=== PATIENT | female | born 1970 | race Caucasian/White ===

== ENCOUNTER 2024-03-10 11:58 | Inpatient (IN) | payer OTHER, BC ==
[~2024-03-10] VITALS: Ht 157.5 cm; Wt 63.2 kg
[2024-03-10 12:01] VITALS: O2SAT 100
[2024-03-10] MEDS: LABETALOL 5MG/ML 4ML INJ IV ONE (12:30)
[2024-03-10 13:27] LABS: BASOPHILS % 0.6 % (0.0-2.0); CHLORIDE 108 mEq/L (98-107); EOSINOPHILS % 0.6 % (0.0-5.0); HEMATOCRIT. 39.4 % (36.0-48.0); HEMOGLOBIN. 13.4 g/dL (12.0-16.0); MEAN CORPUSCULAR HEMOGLOBIN 29.4 pg (28.0-32.0); MEAN CORPUSCULAR HGB CONC 33.9 g/dL (31.0-37.0); MEAN CORPUSCULAR VOLUME 86.7 fL (81.0-99.0); MEAN PLATELET VOLUME 11.2 fl (7.4-10.4); MONOCYTES % 4.1 % (2.0-8.0); NEUTROPHILS % 78.7 % (40.0-76.0); PLATELET 179 x1000/uL (130-400); POTASSIUM 3.4 mEq/L (3.5-5.1); RED BLOOD CELL COUNT 4.55 mill/uL (4.2-5.4); SODIUM 142 mEq/L (136-145)
[2024-03-10 13:28] LABS: CALCIUM 9.8 mg/dL (8.7-10.4); CARBON DIOXIDE 28 mEq/L (21-32)
[2024-03-10 13:33] LABS: CREATININE 0.6 mg/dL (0.6-1.0); GLUCOSE 139 mg/dL (70-105); UREA NITROGEN BLOOD 17 mg/dL (9-23)
[2024-03-10 13:34] LABS: TROPONIN I HIGH SENSITIVITY 4 ng/L (3.0-34)
[2024-03-10 13:43] LABS: ETHANOL BLOOD < 10 mg/dL (<10)
[2024-03-10] MEDS: AMLODIPINE 5MG TABLET PO SCH (14:24)
[2024-03-10] MEDS ORDERED: ONDANSETRON HCL 4MG/2ML INJ IV PRN (14:45)
[2024-03-10] MEDS ORDERED: IPRATROPIUM/ALBUTEROL 0.5-3(2.5)MG/3ML NEB NEB PRN (14:45)
[2024-03-10] MEDS ORDERED: MAGNESIUM/ALUMINUM HYDROXIDE/SIMETHICONE 30ML UDC PO PRN (14:45)
[2024-03-10] MEDS ORDERED: ACETAMINOPHEN 325MG TABLET PO PRN (14:45)
[2024-03-10] MEDS ORDERED: CLONIDINE 0.1MG TABLET PO PRN (14:45)
[2024-03-10] MEDS ORDERED: ZOLPIDEM TARTRATE 5MG TABLET PO PRN (14:45)
[2024-03-10 15:39] LABS: CLARITY URINE CLEAR (CLEAR); COLOR URINE YELLOW (YELLOW); GLUCOSE URINE NEGATIVE (NEGATIVE); KETONES URINE NEGATIVE (NEGATIVE); LEUKOCYTE ESTERASE URINE NEGATIVE (NEGATIVE); NITRITE URINE NEGATIVE (NEGATIVE); OCCULT BLOOD URINE 1+ (NEGATIVE); PROTEIN URINE NEGATIVE (NEGATIVE); SPECIFIC GRAVITY URINE 1.007 (1.005-1.030); UROBILINOGEN URINE 0.2 E.U./dL (0.2-1.0)
[2024-03-10 15:47] LABS: *AMPHETAMINES SCREEN URINE NEGATIVE (NEGATIVE); *BARBITURATES SCREEN URINE NEGATIVE (NEGATIVE); *BENZODIAZEPINES SCREEN URINE NEGATIVE (NEGATIVE); *COCAINE SCREEN URINE NEGATIVE (NEGATIVE); CANNABINOID URINE SCREEN PRESUMPTIVE POSITIVE (NEGATIVE); METHADONE URINE SCREEN NEGATIVE (NEGATIVE); OPIATES URINE SCREEN NEGATIVE (NEGATIVE); PHENCYCLIDINE URINE SCREEN NEGATIVE (NEGATIVE)
[2024-03-10 15:48] LABS: ECSTASY MDMA SCREEN URINE NEGATIVE (NEGATIVE)
[2024-03-10 16:56] LABS: BACTERIA URINE TRACE; SQUAMOUS EPITHELIAL CELL URINE FEW /lpf (RARE/1+); WBC URINE 0-2 /hpf (0-2)
[2024-03-10 18:00] VITALS: BP 155/84; PULSE 74; RESP 16; TEMP 36.78072; O2SAT 98
[2024-03-10 18:03] VITALS: BP 155/84; PULSE 74; RESP 16; TEMP 36.8072
[2024-03-10 20:00] VITALS: BP 157/93; PULSE 70; RESP 19; TEMP 36.72516; O2SAT 97
[2024-03-10] MEDS: ENOXAPARIN 40MG/0.4ML SYR SUBCUT SCH (21:09)
[2024-03-11] VITALS: BP 129/79; PULSE 61; RESP 14; TEMP 36.61404; O2SAT 97
[2024-03-11 00:06] LABS: CREATINE KINASE 92 IU/L (34-145); TROPONIN I HIGH SENSITIVITY 6 ng/L (3.0-34)
[2024-03-11 04:00] VITALS: BP 134/79; PULSE 62; RESP 14; TEMP 36.9474; O2SAT 97
[2024-03-11 06:14] LABS: BASOPHILS % 1.3 % (0.0-2.0); DIFFERENTIAL COMMENT 0; EOSINOPHILS % 3.4 % (0.0-5.0); HEMOGLOBIN. 13.2 g/dL (12.0-16.0); LYMPHOCYTES % 39.2 % (20.0-50.0); MEAN CORPUSCULAR HEMOGLOBIN 29.8 pg (28.0-32.0); MEAN CORPUSCULAR HGB CONC 34.7 g/dL (31.0-37.0); MEAN CORPUSCULAR VOLUME 85.9 fL (81.0-99.0); MEAN PLATELET VOLUME 11.2 fl (7.4-10.4); MONOCYTES % 7.8 % (2.0-8.0); NEUTROPHILS % 48.3 % (40.0-76.0); PLATELET 170 x1000/uL (130-400); RED BLOOD CELL COUNT 4.42 mill/uL (4.2-5.4); RED CELL DISTRIBUTION WIDTH 13.9 % (11.6-14.6); WHITE BLOOD COUNT 3.8 x1000/uL (4.5-11.0)
[2024-03-11 06:28] LABS: CARBON DIOXIDE 27 mEq/L (21-32); CHLORIDE 107 mEq/L (98-107); POTASSIUM 3.3 mEq/L (3.5-5.1); SODIUM 140 mEq/L (136-145)
[2024-03-11 06:29] LABS: CALCIUM 9.6 mg/dL (8.7-10.4)
[2024-03-11 06:34] LABS: CREATININE 0.5 mg/dL (0.6-1.0); GLUCOSE 107 mg/dL (70-105); UREA NITROGEN BLOOD 18 mg/dL (9-23)
[2024-03-11 06:35] LABS: TROPONIN I HIGH SENSITIVITY 4 ng/L (3.0-34)
[2024-03-11 08:00] VITALS: BP 150/80; PULSE 65; RESP 13; TEMP 36.50292; O2SAT 99
[2024-03-11] MEDS: PANTOPRAZOLE SODIUM 40 MG/VIAL IV SCH (09:36)
[2024-03-11 12:00] VITALS: BP 151/85; PULSE 72; RESP 14; TEMP 36.89184; O2SAT 98
[2024-03-11] MEDS: POTASSIUM CHLORIDE 20MEQ TABLET SR PO SCH (14:24)
[2024-03-11] MEDS ORDERED: AMLO10TA4 MT (15:14)
[2024-03-11] MEDS ORDERED: ASPI-1406 MT (15:15)
[2024-03-11] MEDS ORDERED: ATOR10TA MT (15:15)
[2024-03-11 16:00] VITALS: BP 120/81; PULSE 70; RESP 20; TEMP 36.44736; O2SAT 98
[2024-03-11 17:58] VITALS: BP 120/91; PULSE 70; TEMP 98.2
== END 2024-03-11 18:26 | disposition home or self-care (01) | DRG 74 ==
LOC: ER 11:58 → EDBEDREQTM 13:29 → EDBEDREQ 13:29 → 3WST 17:51
PROVIDERS: ADMIT Internal Medicine; ATTEND Internal Medicine
DX: G90.89 Other disorders of autonomic nervous system (principal); G93.40 Encephalopathy, unspecified; I16.0 Hypertensive urgency; Z91.199 Patient's noncompliance with other medical treatment and regimen due to unspecified reason
CPT/HCPCS: 36415; 71045; 80048; 80305; 80320; 81003; 82550; 82553; 83880; 84484; 85025; 86705; 87340; 93005; 93970; 99285; J1650; J2470; G0480